=== PATIENT | female | born 1945 | race Caucasian/White ===

== ENCOUNTER → 2020-01-26 09:52 | Outpatient (BNVA) | payer MEDICARE, OTHER, SELFPAY | PROVIDERS: Family Provider Nurse Practitioner; PCP Nurse Practitioner; Visit Provider Nurse Practitioner | DX: M25.562 Pain in left knee (principal) | CPT/HCPCS: 73562 ==

== ENCOUNTER 2020-04-21 13:33 | Outpatient (CLI) | payer MEDICARE, OTHER, SELFPAY ==
--- NOTE | 2020-04-21 14:12 | PFTS_ITS ---
Date of Study:04/21/20 Date of Dictation: MECHANICS: Forced vital capacity (FVC) is normal. Forced expiratory volume in one second (FEV1) is normal. FEV1/FVC is normal. FLOW VOLUME LOOP: Normal. LUNG VOLUMES: Not performed DIFFUSING CAPACITY FOR CARBON MONOXIDE: Not performed. INTERPRETATION: The spirometry is normal. MTDD
== END 2020-04-21 13:34 | disposition home or self-care (01) ==
LOC: RT 13:39
PROVIDERS: PCP Nurse Practitioner; Visit Provider Internal Medicine Cardiovascular Disease
DX: R06.02 Shortness of breath (principal)
CPT/HCPCS: 94010; 94729

== ENCOUNTER → 2020-06-15 10:55 | Outpatient (BNVA) | payer MEDICARE, OTHER, SELFPAY | PROVIDERS: PCP Nurse Practitioner; Visit Provider Nurse Practitioner | DX: M54.2 Cervicalgia (principal); M54.9 Dorsalgia, unspecified; K92.1 Melena | CPT/HCPCS: 72040; 72072; 72100; 74018 ==

== ENCOUNTER → 2020-07-01 09:43 | Outpatient (BNVA) | payer MEDICARE, OTHER, SELFPAY | PROVIDERS: PCP Nurse Practitioner; Visit Provider Nurse Practitioner | DX: E78.5 Hyperlipidemia, unspecified (principal); I10 Essential (primary) hypertension; R39.9 Unspecified symptoms and signs involving the genitourinary system; E03.8 Other specified hypothyroidism; M50.30 Other cervical disc degeneration, unspecified cervical region; M51.36 Other intervertebral disc degeneration, lumbar region | CPT/HCPCS: 80053; 80061; 81000; 84443; 85025 ==

== ENCOUNTER → 2020-12-08 15:06 | Outpatient (BNVA) | payer MEDICARE, OTHER, SELFPAY | PROVIDERS: PCP Nurse Practitioner; Visit Provider Nurse Practitioner | DX: E78.5 Hyperlipidemia, unspecified (principal); M54.6 Pain in thoracic spine; J44.9 Chronic obstructive pulmonary disease, unspecified; E03.8 Other specified hypothyroidism; M54.9 Dorsalgia, unspecified; I10 Essential (primary) hypertension | CPT/HCPCS: 80053; 80061; 84443 ==

== ENCOUNTER → 2021-02-10 10:07 | Outpatient (BNVA) | payer MEDICARE, OTHER, SELFPAY | PROVIDERS: PCP Nurse Practitioner; Visit Provider Nurse Practitioner Family | DX: R07.89 Other chest pain (principal); H61.23 Impacted cerumen, bilateral; J44.9 Chronic obstructive pulmonary disease, unspecified | CPT/HCPCS: 71046; 80053; 84484; 85025 ==

== ENCOUNTER 2021-02-27 09:06 | Outpatient (CLI) | payer MEDICARE, OTHER, SELFPAY ==
--- NOTE | 2021-02-27 09:30 | CT_ITS ---
WS: [id number] CTA THORACIC TECHNIQUE: Contrast enhanced CTA of the thoracic aorta with coronal and sagittal reformatted images a nd maximum intensity projection (MIP) images. CLINICAL INFORMATION: M54.6 - Pain in thoracic spine COMPARISON: CT April 2018 DLP: 1468.[address] scans at [facility] use at least one of these dose optimization techniques: automat ed exposure control; mA and/or kV adjustment per patient size (includes targeted exams where dose is matched to clinical indication); or iterative reconstruction. FINDINGS: Normal caliber thoracic aorta. Mild aortic calcification. No evidence of thoracic aortic aneurysm or dissection. No evidence of intramural hematoma.Mild chronic emphysematous changes. No acute pulmonary infiltrates. No focal consolidation or pleural fluid. Subsegmental atelectasis in the lingula. No ax illary lymphadenopathy. Proximal main pulmonary arteries are normal. No mediastinal or hilar lymphadenopathy. Right thyroid n odule measuring 2 mm unchanged since 2019. Mild thoracic kyphosis. Endplate Schmorl's nodes and degenerative changes in the mid thoracic spine. Adrenal glands are normal. CT/CT angio chest [id number] IMPRESSION: 1. Normal caliber thoracic aorta. No evidence of dissection or aneurysm. 2. Mild chronic emphysematous changes. No acute pulmonary infiltrates. 3. No mediastinal or hilar lymphadenopathy. 4. Mild thoracic kyphosis with mild chronic anterior wedging in the mid thorac ic 5. Endplate degenerative changes with endplate Schmorl's nodes in the mid and lower thoracic spine. This is similar in appearance to 2018.
[2021-02-27] MEDS: iohexol 350 mg/mL 100 mL Btl IV (09:44)
== END 2021-02-27 09:07 | disposition home or self-care (01) ==
LOC: RADWPI 09:10
PROVIDERS: PCP Nurse Practitioner; Visit Provider Internal Medicine Cardiovascular Disease
DX: M51.44 Schmorl's nodes, thoracic region (principal); M40.294 Other kyphosis, thoracic region; M48.54XS Collapsed vertebra, not elsewhere classified, thoracic region, sequela of fracture
CPT/HCPCS: 71275; Q9967

== ENCOUNTER → 2021-04-26 10:33 | Outpatient (BNVA) | payer MEDICARE, OTHER, SELFPAY | PROVIDERS: PCP Nurse Practitioner; Visit Provider Nurse Practitioner | DX: I10 Essential (primary) hypertension (principal); E03.8 Other specified hypothyroidism; E78.5 Hyperlipidemia, unspecified; F41.9 Anxiety disorder, unspecified | CPT/HCPCS: 80053; 80061; 84443 ==

== ENCOUNTER → 2021-08-16 15:21 | Outpatient (BNVA) | payer MEDICARE, OTHER, SELFPAY | PROVIDERS: PCP Nurse Practitioner; Visit Provider Nurse Practitioner | DX: M51.36 Other intervertebral disc degeneration, lumbar region (principal); E55.9 Vitamin D deficiency, unspecified; M25.551 Pain in right hip; M25.552 Pain in left hip; M79.671 Pain in right foot; M79.672 Pain in left foot | CPT/HCPCS: 82306 ==

== ENCOUNTER → 2021-08-23 09:12 | Outpatient (BNVA) | payer MEDICARE, OTHER, SELFPAY | PROVIDERS: PCP Nurse Practitioner; Visit Provider Nurse Practitioner | DX: M25.551 Pain in right hip (principal); M25.552 Pain in left hip; M79.671 Pain in right foot; M79.672 Pain in left foot; M47.897 Other spondylosis, lumbosacral region | CPT/HCPCS: 72100; 73502; 73522; 73630 ==

== ENCOUNTER → 2022-02-08 10:03 | Outpatient (BNVA) | payer MEDICARE, OTHER, SELFPAY | PROVIDERS: PCP Nurse Practitioner; Visit Provider Internal Medicine Cardiovascular Disease | DX: I65.23 Occlusion and stenosis of bilateral carotid arteries (principal); I35.1 Nonrheumatic aortic (valve) insufficiency; I49.3 Ventricular premature depolarization; I10 Essential (primary) hypertension; E78.5 Hyperlipidemia, unspecified; E03.8 Other specified hypothyroidism; Z87.891 Personal history of nicotine dependence | CPT/HCPCS: 99214 ==

== ENCOUNTER → 2022-02-22 09:11 | Outpatient (BNVA) | payer MEDICARE, OTHER, SELFPAY | PROVIDERS: PCP Nurse Practitioner; Visit Provider Nurse Practitioner Family | DX: I35.1 Nonrheumatic aortic (valve) insufficiency (principal); R07.89 Other chest pain; I10 Essential (primary) hypertension; Z87.891 Personal history of nicotine dependence | CPT/HCPCS: 99214 ==

== ENCOUNTER 2022-03-07 08:17 | Outpatient (CLI) | payer MEDICARE, OTHER, SELFPAY ==
[2022-03-07 08:51] VITALS: BMI 22.0
--- NOTE | 2022-03-07 08:52 | NMCV_ITS ---
NM james perf SPECT r/s* [id number] Ansley Nickerson Age: 76 Gender: F : 1945 Exam Date: 03/07/2022 08:52 Ordering Phys: Chanel Leahy Technologist: ALVARO Wilson Exam Location: [facility] Indications: CHEST PAIN STRESS TEST Please see separate stress test report in [facility] for full findings IMAGE PROTOCOL Rest/Stress 1 Exercise Day Radiopharmaceutical Dose (mCi) Administration Site Administered by Rest: Tc-99m 10.5 IV ALVARO Mora Sestamibi Stress:Tc-99m 32.4 IV ALVARO Mora Sestamimayco Rest: 07-Mar-2022 60 Discovery 630 Stress: 07-Mar-2022 15 Discovery 630 Radiopharmaceutical was injected at 100% maximum heart rate. Images obtained in supine and prone position. SPECT RESULTS Technical Quality: Excellent Raw Data Analysis: Normal Image Corrections: No attenuation or motion correction applied Summed Stress Score: 0 Summed Rest Score: 1 Summed Difference Score: 0 PERFUSION FINDINGS Small size perfusion normality of mild severity of apical septal wall on rest images with improved tracer uptake on stress images. FUNCTIONAL RESULTS (calculated via Gated SPECT) Stress Image LV EF (%): 86 Stress EDV (mL):59 TID: 0.74 Stress ESV (mL):8 FUNCTIONAL FINDINGS: The left ventricle is normal in size. Transient Ischemia Dilatation of 0.74. There is normal left ventricular systolic function. The left ventricular ejection fraction is normal with a value of 86%. There is hyperdynamic left ventricular wall thickening. IMPRESSIONS 1. Myocardial perfusion imaging is normal. 2. Overall left ventricular systolic function is normal without regional wall motion abnormalities. 3. The left ventricular ejection fraction is normal with a value of 86%. 4. Uninterpretable EKG due to baseline left bundle branch block. 5. Scan indicates low risk for cardiac events. Verna Kimble MD (Electronically Signed) Final Date: 09 March 2022 14:46 S
--- NOTE | 2022-03-07 08:52 | ECG_ITS ---
[facility] Test Date: 2022-03-07 Pat Name: Ansley Nickerson Department: Room: Gender: Female Director Of Employee Development: : 1945 Requested By: Chanel Leahy Order Number: [id number] Espinoza MD: Verna Kimble M.D. Interpretive Statements NAME OF STUDY: EXERCISE SESTAMIBI STRESS TEST INDICATION: Chest Pain Baseline blood pressure of 146/85 mm Hg, heart rate of 82 beats per minute and oxygen saturation of 96%. EKG showed normal sinus rhythm, left axis deviation. Left bundle branch block. The patient exercised for 5 minutes 32 seconds on a standard Maximino protocol. Patient attained a maximum heart rate of 155 beats per minute(108% of the maximum predicted heart rate) with a blood pressure at the peak exercise of 159/71 mm Hg and oxygen saturation 96%. The EKG at the peak exercise revealed sinus tachycardia with left bundle branch block. Patient did not have any chest pain or any significant arrhythmis with the exercise During the recovery phase, there were no new changes. Blood pressure at the end of the recovery phase was 139/72 mm Hg with a heart rate of 84 beats per minute and oxygen saturation 96%. CONCLUSION: 1. Uninterpretable EKG response to treadmill exercise due to baseline left bundle branch block. 2. No exercise-induced chest pain or cardiac arrhythmia 3. Exercise tolerance, attained a maximum of 7 METs. Maximum VO2 of 24.5 mL/kg/min. 4. Baseline hypertension/normal blood pressure with hypertensive/normal response to exercise. 5. Perfusion scan will be documented separately. Electronically Signed On 03-09-2022 14:45:18 CDT by Verna Kimble M.D. [id number]
[2022-03-07 11:23] VITALS: BP 117/73; PULSE 73
== END 2022-03-07 08:18 | disposition home or self-care (01) ==
LOC: CDL 08:18
PROVIDERS: PCP Nurse Practitioner; Visit Provider Nurse Practitioner Family
DX: R07.9 Chest pain, unspecified (principal); I10 Essential (primary) hypertension
CPT/HCPCS: 78452; 93017; A9500

== ENCOUNTER 2022-03-28 12:59 | Outpatient (CLI) | payer MEDICARE, OTHER, SELFPAY ==
--- NOTE | 2022-03-28 13:30 | USCV_ITS ---
Ansley Nickerson Age: 76 Gender: F : 1945 Exam Date: 03/28/2022 13:10 Ordering Phys: Ellie Davis MD ([email or web address]) Technologist: [place] [facility] [place]: cca disease Risk Factors: None Previous Vascular Surgery: Right Brachial BP: / Left Brachial BP: / Right Left Velocity (cm/s) Spectral Plaque Velocity (cm/s) Spectral Plaque Syst/Diast Broadening Syst/Diast Broadening 63.40/ 12.65 Prox CCA 52.80 / 10.10 61.75/ 12.65 Mid CCA 51.30 / 14.00 55.35/ 13.30 Hetro Distal CCA 43.50 / 7.80 Hetro 75.55/ 14.85 Hetro Prox ICA 57.50 / 7.80 Hetro 90.95/ 20.95 Hetro Mid ICA 61.40 / 12.40 89.60/ 19.95 Distal ICA 88.60 / 28.00 107.05 ECA 60.60 1.55 ICA/CCA 1.68 Antegrade Vertebral Antegrade 54.55/ 11.65 cm/s 54.00/ 12.00 cm/s Bi Subclavian Tri 88.20 93.20 FINDINGS Mild to moderate heterogeneous plaques at the right bifurcation and proximal internal carotid artery Moderate heterogeneous plaques at the left bifurcation and proximal internal carotid artery Antegrade flow in the vertebral arteries bilaterally. Normal Doppler flow velocities in the external carotid, vertebral and subclavian arteries bilaterally CONCLUSIONS Mild to moderate heterogeneous plaques at the right bifurcation and proximal internal carotid artery suggesting less than 50% stenosis Moderate heterogeneous plaques at the left bifurcation and proximal internal carotid artery suggesting less than 50% stenosis. No significant stenosis in the external carotid, vertebral and subclavian arteries bilaterally. Compared to the study from 08/14/2019, there may not be a significant change Dr Ellie Davis MD [facility] (Electronically Signed) Final Date: 02 Apr 2022 12:54 S
== END 2022-03-28 13:00 | disposition home or self-care (01) ==
LOC: RAD 13:00
PROVIDERS: PCP Nurse Practitioner; Visit Provider Internal Medicine Cardiovascular Disease
DX: I77.9 Disorder of arteries and arterioles, unspecified (principal); I65.23 Occlusion and stenosis of bilateral carotid arteries
CPT/HCPCS: 93880

== ENCOUNTER 2022-05-02 06:13 | Outpatient (CLI) | payer MEDICARE, OTHER, SELFPAY ==
--- NOTE | 2022-05-02 | USCV_ITS ---
LiyaAnsley Age: 76 Gender: F : 1945 Exam Date: 05/02/2022 06:31 Ordering Phys: Chanel Leahy Technologist: NORMA [place] [facility] [place]ication: SYSTOLIC MURMUR BP: 0 / 90 HR: 74 Rhythm: Sinus Technical Quality: Adequate MEASUREMENTS (Male / Female) Normal Values 2D ECHO LV Diastolic Diameter PLAX 4.3 cm 4.2 - 5.9 / 3.9 - 5.3 cm LV Systolic Diameter PLAX 2.5 cm IVS Diastolic Thickness 1.2 cm 0.6 - 1.0 / 0.6 - 0.9 cm IVS Systolic Thickness 1.7 cm LVPW Diastolic Thickness 1.1 cm 0.6 - 1.0 / 0.6 - 0.9 cm LVPW Systolic Thickness 1.6 cm LVOT Diameter 2.0 cm LV Ejection Fraction 2D Teich 72.1 % LV Ejection Fraction MOD 2C 67.9 % LV Ejection Fraction 2C AL 67.5 % LA Diameter 3.2 cm LA Width 4.2 cm LA Height 4.5 cm RA Width 2.6 cm RA Height 4.6 cm Aorta at Sinotubular Diameter 1.8 cm IVC Diameter 1.4 cm M-MODE Aortic Annulus Diameter 2.2 cm LA Ao Ratio MM 1.3 MV E Point Septal Separation 0.2 cm DOPPLER AV Peak Velocity 189.0 cm/s LVOT Peak Velocity 140.3 cm/s AV Area Cont Eq vti 2.5 cm squared AV Area Cont Eq pk 2.3 cm squared MV Peak Velocity 196.0 cm/s MV Area PHT 2.1 cm squared Mitral E to A Ratio 0.7 MV E' Velocity 55.5 cm/s Mitral E to MV E' Ratio 22.8 Mitral E to LV E' Lateral Ratio 27.5 Mitral E to LV E' Septal Ratio 19.8 TR Peak Velocity 241.6 cm/s TR Peak Gradient 23.3 mmHg TR Mean Velocity 204.7 cm/s TR Mean Gradient 17.1 mmHg TR Velocity Time Integral 77.6 cm TV Peak E Velocity 38.0 cm/s Right Atrial Pressure 3.0 mmHg Pulmonary Artery Systolic Pressu 26.3 mmHg PV Peak Velocity 115.0 cm/s RV Acceleration Time 0.1 s RV Ejection Time 0.4 s RV AcT/ET 0.3 FINDINGS Left Ventricle Normal left ventricular size and systolic function, EF 73 %. Moderate left ventricular hypertrophy. No regional wall motion abnormalities. Grade I/IV diastolic dysfunction (abnormal relaxation filling pattern), normal to mildly elevated filling pressures. Right Ventricle The right ventricle is normal in size and function. Right Atrium The right atrium is normal in size. Left Atrium Mildly increased left atrial size. Mitral Valve Trace mitral valve regurgitation. Aortic Valve Thickened aortic valve. Mild to moderate aortic valve regurgitation. Tricuspid Valve Mild tricuspid valve regurgitation. Estimated pulmonary artery peak systolic pressure of 26 mmHg Pulmonic Valve Pulmonic valve not well visualized. Pericardium Normal pericardium without effusion. Aorta Normal ascending aorta dimension. IVC IVC is of normal dimension CONCLUSIONS Normal left ventricular size and systolic function, EF 73 %. Moderate left ventricular hypertrophy. No regional wall motion abnormalities. Grade I/IV diastolic dysfunction (abnormal relaxation filling pattern), normal to mildly elevated filling pressures. Mildly increased left atrial size. Thickened aortic valve, with the features of aortic valve sclerosis Mild to moderate aortic valve regurgitation. Mild tricuspid valve regurgitation. Estimated pulmonary artery peak systolic pressure of 26 mmHg. There is no pericardial effusion. Dr Ellie Davis MD [facility] (Electronically Signed) Final Date: 02 May 2022 08:24 S
== END 2022-05-02 06:14 | disposition home or self-care (01) ==
LOC: RAD 06:13
PROVIDERS: PCP Nurse Practitioner; Visit Provider Nurse Practitioner Family
DX: I35.1 Nonrheumatic aortic (valve) insufficiency (principal); R01.1 Cardiac murmur, unspecified
CPT/HCPCS: 93306

== ENCOUNTER → 2022-07-11 14:28 | Outpatient (BNVA) | payer MEDICARE, OTHER, SELFPAY | PROVIDERS: PCP Nurse Practitioner; Visit Provider Nurse Practitioner Family | DX: R07.89 Other chest pain (principal) | CPT/HCPCS: 36415; 80048; 83880; 85025; 85610; 99214 ==

== ENCOUNTER → 2022-07-12 14:00 | Outpatient (BNVA) | payer MEDICARE, OTHER, SELFPAY | PROVIDERS: PCP Nurse Practitioner; Visit Provider Internal Medicine Cardiovascular Disease | DX: R06.02 Shortness of breath (principal); R07.89 Other chest pain; I49.3 Ventricular premature depolarization | CPT/HCPCS: 93225 ==

== ENCOUNTER → 2022-07-18 09:42 | Outpatient (BNVA) | payer MEDICARE, OTHER, SELFPAY | PROVIDERS: PCP Nurse Practitioner; Visit Provider Nurse Practitioner | DX: E03.8 Other specified hypothyroidism (principal) | CPT/HCPCS: 84439; 84443; 84481 ==

== ENCOUNTER → 2022-07-25 09:58 | Outpatient (BNVA) | payer MEDICARE, OTHER, SELFPAY | PROVIDERS: PCP Nurse Practitioner; Visit Provider Internal Medicine Cardiovascular Disease | DX: R06.02 Shortness of breath (principal); E78.5 Hyperlipidemia, unspecified; R53.83 Other fatigue; M25.50 Pain in unspecified joint; R07.89 Other chest pain; Z79.01 Long term (current) use of anticoagulants; I12.9 Hypertensive chronic kidney disease with stage 1 through stage 4 chronic kidney disease, or unspecified chronic kidney disease; N18.9 Chronic kidney disease, unspecified | CPT/HCPCS: 80048; 82550; 83880; 84443; 85025; 86141; 93005; 99214 ==

== ENCOUNTER → 2023-01-25 10:52 | Outpatient (BNVA) | payer MEDICARE, OTHER, SELFPAY | PROVIDERS: PCP Nurse Practitioner; Visit Provider Nurse Practitioner | DX: E55.9 Vitamin D deficiency, unspecified (principal); I10 Essential (primary) hypertension; M79.2 Neuralgia and neuritis, unspecified; J44.9 Chronic obstructive pulmonary disease, unspecified; Z23 Encounter for immunization | CPT/HCPCS: 80053; 80061; 82306; 82607; 84439; 84443; 84481; 85025 ==

== ENCOUNTER → 2023-04-09 15:08 | Outpatient (BNVA) | payer MEDICARE, OTHER, SELFPAY | PROVIDERS: PCP Nurse Practitioner; Visit Provider Nurse Practitioner | DX: M25.50 Pain in unspecified joint (principal) | CPT/HCPCS: 73562 ==

== ENCOUNTER → 2023-04-22 08:42 | Outpatient (BNVA) | payer MEDICARE, OTHER, SELFPAY | PROVIDERS: PCP Nurse Practitioner; Visit Provider Nurse Practitioner Family | DX: I20.9 Angina pectoris, unspecified (principal); R06.02 Shortness of breath; I10 Essential (primary) hypertension; I35.1 Nonrheumatic aortic (valve) insufficiency; I49.3 Ventricular premature depolarization | CPT/HCPCS: 36415; 80048; 83880 ==

== ENCOUNTER → 2023-04-22 08:42 | Outpatient (BNVA) | payer MEDICARE, OTHER, SELFPAY | PROVIDERS: PCP Nurse Practitioner; Visit Provider Nurse Practitioner Family | DX: I10 Essential (primary) hypertension (principal); I49.3 Ventricular premature depolarization; R07.89 Other chest pain; Z87.891 Personal history of nicotine dependence | CPT/HCPCS: 36415; 80048; 83880; 99214 ==

== ENCOUNTER 2023-05-10 13:10 | Outpatient (CLI) | payer MEDICARE, OTHER, SELFPAY ==
--- NOTE | 2023-05-10 14:00 | USCV_ITS ---
Ansley Nickerson Age: 77 Gender: F : 1945 Exam Date: 05/10/2023 14:29 Ordering Phys: Chanel Leahy Technologist: CT Exam Location: [facility] [place] Indication: dyspenea BP: 145 / 70 HR: 57 Rhythm: Sinus Technical Quality: Adequate MEASUREMENTS (Male / Female) Normal Values 2D ECHO LV Diastolic Diameter PLAX 3.7 cm 4.2 - 5.9 / 3.9 - 5.3 cm LV Systolic Diameter PLAX 2.1 cm IVS Diastolic Thickness 0.7 cm 0.6 - 1.0 / 0.6 - 0.9 cm IVS Systolic Thickness 1.3 cm LVPW Diastolic Thickness 1.1 cm 0.6 - 1.0 / 0.6 - 0.9 cm LVPW Systolic Thickness 2.0 cm LVOT Diameter 2.0 cm LV Ejection Fraction 2D Teich 74.7 % LV Ejection Fraction MOD 2C 60.3 % LV Ejection Fraction 2C AL 59.6 % LA Diameter 4.3 cm Aorta at Sinotubular Diameter 2.6 cm IVC Diameter 1.6 cm M-MODE Aortic Annulus Diameter 3.0 cm LA Ao Ratio MM 1.5 MV E Point Septal Separation 0.4 cm DOPPLER AV Peak Velocity 166.0 cm/s LVOT Peak Velocity 126.0 cm/s AV Area Cont Eq vti 3.5 cm squared AV Area Cont Eq pk 2.5 cm squared MV Area PHT 2.5 cm squared Mitral E to A Ratio 0.8 MV E' Velocity 66.0 cm/s Mitral E to MV E' Ratio 19.8 Mitral E to LV E' Lateral Ratio 18.1 Mitral E to LV E' Septal Ratio 22.3 TR Peak Velocity 275.6 cm/s TR Peak Gradient 30.4 mmHg TR Mean Velocity 201.9 cm/s TR Mean Gradient 17.1 mmHg TR Velocity Time Integral 84.1 cm TV Peak E Velocity 117.0 cm/s Right Atrial Pressure 3.0 mmHg Pulmonary Artery Systolic Pressu 33.4 mmHg PV Peak Velocity 110.0 cm/s FINDINGS Left Ventricle Normal left ventricular size, systolic function and moderately increased wall thickness, with no regional wall motion abnormalities. Left ventricular ejection fraction is estimated at 60-65 %. Grade II diastolic dysfunction, moderately elevated filling pressures. Right Ventricle Normal right ventricular size and systolic function. Mild pulmonary hypertension, RVSP 39 mmHg. Right Atrium Normal right atrial size. Left Atrium Mildly increased left atrial size. Mitral Valve Structurally normal mitral valve. No mitral valve stenosis. Mild mitral valve regurgitation. Aortic Valve Structurally normal trileaflet aortic valve. No aortic valve stenosis. Mild aortic valve regurgitation. Tricuspid Valve Structurally normal tricuspid valve. No tricuspid valve stenosis. Mild tricuspid valve regurgitation. Pulmonic Valve Structurally normal pulmonic valve. No pulmonary valve stenosis. Trace pulmonary valve regurgitation. Pericardium No pericardial effusion. Aorta Normal size aortic root and proximal ascending aorta. IVC Normal IVC dimension with >50% respiratory change of the inferior vena cava. CONCLUSIONS 1. Normal left ventricular size, systolic function and moderately increased wall thickness, with no regional wall motion abnormalities. Left ventricular ejection fraction is estimated at 60-65 %. Grade II diastolic dysfunction, moderately elevated filling pressures. 2. Mild mitral and tricuspid valve regurgitation. 3. Mild to moderate aortic valve regurgitation. 4. When compared to study dated 05/02/2022, there has been no significant change. Verna Kimble MD (Electronically Signed) Final Date: 11 May 2023 10:29 S
== END 2023-05-10 13:11 | disposition home or self-care (01) ==
PROVIDERS: PCP Nurse Practitioner; Visit Provider Nurse Practitioner Family
DX: I35.1 Nonrheumatic aortic (valve) insufficiency (principal); I49.3 Ventricular premature depolarization; I10 Essential (primary) hypertension; R06.02 Shortness of breath; I20.9 Angina pectoris, unspecified
CPT/HCPCS: 36415; 80048; 83880; 93306

== ENCOUNTER 2023-05-27 07:08 | Outpatient (CLI) | payer MEDICARE, OTHER, SELFPAY ==
[2023-05-27 07:47] VITALS: BMI 21.6
--- NOTE | 2023-05-27 07:47 | ECG_ITS ---
[facility] Test Date: 2023-05-27 Pat Name: Ansley Nickerson Department: Room: Gender: Female Health Safety Specialist: Amy Barber : 1945 Requested By: Chanel Leahy Order Number: [id number] Alexis MD: Chi Brennan M.D. Interpretive Statements NAME OF STUDY: LEXISCAN SESTAMIBI STRESS TEST INDICATION: [Chest Pain, ] Procedure: At the baseline, the blood pressure was 139/62 mmHg with a heart rate of 73 bpm. The electrocardiogram showed normal sinus rhythm, left bundle branch block. The Lexiscan was infused over a period of 20 seconds. A total of 0.4 mg of Lexiscan was infused. The stress phase was continued for a total of 5 minutes. Heart rate was at the end of stress phase was 87 bpm and a blood pressure of 150/70 mmHg. The EKG at the peak infusion revealed normal sinus rhythm with no significant ST-T wave changes. Sestamibi was injected 20 seconds after the Lexiscan infusion. Blood pressure at the end of recovery phase was 165/68 mmHg with a heart rate of 82 bpm. Conclusion: 1. Normal EKG response to Lexiscan infusion 2. No Lexiscan induced chest pain or cardiac arrhythmia. 3. Normal blood pressure and heart rate response. 4. Sestamibi/sestamibi perfusion scan pending; see separate report. Electronically Signed On 06-01-2023 14:43:23 CDT by Chi Brennan M.D. [id number]
--- NOTE | 2023-05-27 07:48 | NMCV_ITS ---
NM james perf SPECT r/s* [id number] Ansley Nickerson Age: 77 Gender: F : 1945 Exam Date: 05/27/2023 07:48 Ordering Phys: Chanel Leahy Technologist: ALVARO Wilson Exam Location: [facility] Indications: ANGINA PECTORIS, SHORTNESS OF BREATH, HYPERTENSION STRESS TEST Please see separate stress test report in [facility] for full findings IMAGE PROTOCOL Rest/Stress 1 Lexiscan Day Radiopharmaceutical Dose (mCi) Administration Site Administered by Rest: Tc-99m 10.6 IV ALVARO Mora Sestamibi Stress:Tc-99m 32.4 IV ALVARO Mora Sestamibi Rest: 27-May-2023 60 Discovery 630 Stress: 27-May-2023 30 Discovery 630 0.4mg Lexiscan. Images obtained in supine and prone position. SPECT RESULTS Technical Quality: Excellent Raw Data Analysis: Normal Image Corrections: No attenuation or motion correction applied Summed Stress Score: 0 Summed Rest Score: 5 Summed Difference Score: 0 PERFUSION FINDINGS There is homogenous radiotracer uptake throughout the myocardium. No evidence of ischemia. FUNCTIONAL RESULTS (calculated via Gated SPECT) Stress Image LV EF (%): 83 Stress EDV (mL):66 TID: 0.89 Stress ESV (mL):11 FUNCTIONAL FINDINGS: There is normal left ventricular systolic function. IMPRESSIONS 1. Normal myocardial perfusion imaging with no evidence of ischemia 2. LV systolic function is normal Chi Brennan MD (Electronically Signed) Final Date: 27 May 2023 10:42 S
--- NOTE | 2023-05-27 08:50 | PC.NURSE ---
Around 0850: Patient stated that she injured her knee and is unable to perform exercise mibi stress test on treadmill. Notified Dr. Davis, patients casework specialist. Orders received to change test to lexiscan mibi stress test. See orders.
[2023-05-27] MEDS: aminophylline 25 mg/mL SDV 10 mL IVP (09:00)
[2023-05-27 09:15] VITALS: BP 165/68; PULSE 83
== END 2023-05-27 07:09 | disposition home or self-care (01) ==
LOC: CDL 07:09
PROVIDERS: PCP Nurse Practitioner; Visit Provider Nurse Practitioner Family
DX: R07.9 Chest pain, unspecified (principal); R06.02 Shortness of breath; I10 Essential (primary) hypertension; I20.9 Angina pectoris, unspecified
CPT/HCPCS: 36415; 78452; 93017; 96374; A9500; J0280

== ENCOUNTER → 2023-06-03 12:52 | Outpatient (BNVA) | payer MEDICARE, OTHER, SELFPAY | PROVIDERS: PCP Nurse Practitioner; Visit Provider Thoracic Surgery (Cardiothoracic Vascular Surgery) | DX: I96 Gangrene, not elsewhere classified (principal); L97.812 Non-pressure chronic ulcer of other part of right lower leg with fat layer exposed | CPT/HCPCS: 11042; 99213; A6021 ==

== ENCOUNTER → 2023-06-07 08:57 | Outpatient (BNVA) | payer MEDICARE, OTHER, SELFPAY | PROVIDERS: PCP Nurse Practitioner; Visit Provider Nurse Practitioner Family | DX: R06.02 Shortness of breath (principal) | CPT/HCPCS: 99213 ==

== ENCOUNTER → 2023-06-11 11:31 | Outpatient (BNVA) | payer MEDICARE, OTHER, SELFPAY | PROVIDERS: PCP Nurse Practitioner; Visit Provider Nurse Practitioner | DX: I10 Essential (primary) hypertension (principal); E03.8 Other specified hypothyroidism; E55.9 Vitamin D deficiency, unspecified | CPT/HCPCS: 80053; 80061; 82306; 82607; 84443 ==

== ENCOUNTER → 2023-06-12 14:45 | Outpatient (BNVA) | payer MEDICARE, OTHER, SELFPAY | PROVIDERS: PCP Nurse Practitioner; Visit Provider Thoracic Surgery (Cardiothoracic Vascular Surgery) | DX: I96 Gangrene, not elsewhere classified (principal); L97.812 Non-pressure chronic ulcer of other part of right lower leg with fat layer exposed | CPT/HCPCS: 11042; A6021; A6212 ==

== ENCOUNTER → 2023-06-19 14:11 | Outpatient (BNVA) | payer MEDICARE, OTHER, SELFPAY | PROVIDERS: PCP Nurse Practitioner; Visit Provider Thoracic Surgery (Cardiothoracic Vascular Surgery) | DX: I96 Gangrene, not elsewhere classified (principal); L97.812 Non-pressure chronic ulcer of other part of right lower leg with fat layer exposed | CPT/HCPCS: 97597; A6210; A6212 ==

== ENCOUNTER → 2023-06-26 14:56 | Outpatient (BNVA) | payer MEDICARE, OTHER, SELFPAY | PROVIDERS: PCP Nurse Practitioner; Visit Provider Thoracic Surgery (Cardiothoracic Vascular Surgery) | DX: I96 Gangrene, not elsewhere classified (principal); L97.812 Non-pressure chronic ulcer of other part of right lower leg with fat layer exposed | CPT/HCPCS: 11042; A6212 ==

== ENCOUNTER → 2023-07-03 14:21 | Outpatient (BNVA) | payer MEDICARE, OTHER, SELFPAY | PROVIDERS: PCP Nurse Practitioner; Visit Provider Thoracic Surgery (Cardiothoracic Vascular Surgery) | DX: I96 Gangrene, not elsewhere classified (principal); L97.812 Non-pressure chronic ulcer of other part of right lower leg with fat layer exposed | CPT/HCPCS: 97597; A6210; A6212 ==

== ENCOUNTER 2024-01-13 10:19 | Outpatient (CLI) | payer MEDICARE, OTHER, SELFPAY ==
--- NOTE | 2024-01-13 11:00 | CT_ITS ---
WS: [id number] CT HEAD NONCONTRAST HISTORY: R26.81 - Unsteadiness on feet TECHNIQUE: Contiguous axial imaging performed through the brain in 2.5 mm imaging. Bone and soft tiss ue windows. Sagittal and coronal reformats reviewed. All CT scans at [facility] use at least one of these dose optimization techniques: automated exposure control; mA and/or kV adjustment per pa tient size (includes targeted exams where dose is matched to clinical indication); or iterative recon struction. DLP: 1051.39 mGy.cm COMPARISON: 09/13/2016 No acute intracranial hemorrhage, midline shift or mass effect. Mild to moderate bilateral cerebral and cerebellar atrophy is symmetric. Very mild progression of vol ume loss since 2016. Mild small vessel ischemic changes. No prior infarct. Ventricles: Normal size with no hydrocephalus. Moderate calcification in the distal intracranial carotid arteries. Paranasal sinuses: As visualized are clear. Mastoid air cells: Normal mastoid air cells. Cerumen in the external auditory canals. Calvarium and scalp: Skull is intact with no soft tissue edema or swelling. IMPRESSION: 1. No acute intracranial hemorrhage or edema. 2. Mild to moderate bilateral cerebellar and cerebral atrophy is symmetric. Mild progression of atro phy and small vessel ischemic disease since 2016.
--- NOTE | 2024-01-13 12:30 | USCV_ITS ---
Ansley Nickerson Age: 78 Gender: F : 1945 Exam Date: 01/13/2024 11:16 Ordering Phys: Taran Clark Technologist: CT Exam Location: [facility] [place] Indication: syncope Risk Factors: Previous Vascular Surgery: Right Brachial BP: / Left Brachial BP: / Right Left Velocity (cm/s) Spectral Plaque Velocity (cm/s) Spectral Plaque Syst/Diast Broadening Syst/Diast Broadening 60.80/ 15.40 Prox CCA 66.50 / 12.00 68.40/ 15.40 Mid CCA 63.00 / 11.80 51.60/ 15.40 Distal CCA 72.60 / 13.00 86.70/ 19.30 Prox ICA 74.00 / 8.90 82.30/ 25.90 Mid ICA 63.20 / 14.30 86.40/ 23.60 Distal ICA 83.10 / 19.70 62.20 ECA 88.90 1.70 ICA/CCA 1.10 Antegrade Vertebral Antegrade 39.10/ 8.50 cm/s 46.70/ 10.60 cm/s Bi Subclavian Bi FINDINGS Comparison:. 03/28/22. No significant elevation of systolic or diastolic velocities. Moderate plaque at the bifurcations. Antegrade vertebral arteries. CONCLUSIONS Bilateral ICA stenosis less than 50%. Moderate plaque at the bifurcations. Dr. Shivani Guerrier DO (Electronically Signed) Final Date: 13 January 2024 13:06 S
== END 2024-01-13 10:20 | disposition home or self-care (01) ==
LOC: RAD 10:20
PROVIDERS: PCP Nurse Practitioner; Visit Provider Nurse Practitioner
DX: R26.81 Unsteadiness on feet (principal); I65.23 Occlusion and stenosis of bilateral carotid arteries; E78.5 Hyperlipidemia, unspecified
CPT/HCPCS: 70450; 93880

== ENCOUNTER → 2024-01-27 16:07 | Outpatient (BNVA) | payer MEDICARE, OTHER, SELFPAY | PROVIDERS: PCP Nurse Practitioner; Visit Provider Nurse Practitioner | DX: I10 Essential (primary) hypertension (principal); E03.8 Other specified hypothyroidism | CPT/HCPCS: 80053; 80061; 84443; 85025 ==

== ENCOUNTER → 2024-03-02 10:00 | Outpatient (BNVA) | payer MEDICARE, OTHER, SELFPAY | PROVIDERS: PCP Nurse Practitioner; Visit Provider Internal Medicine Cardiovascular Disease | DX: I49.3 Ventricular premature depolarization (principal); I35.1 Nonrheumatic aortic (valve) insufficiency; I10 Essential (primary) hypertension; E78.5 Hyperlipidemia, unspecified; I65.23 Occlusion and stenosis of bilateral carotid arteries; Z87.891 Personal history of nicotine dependence | CPT/HCPCS: 99214 ==

== ENCOUNTER 2024-07-23 06:00 | Outpatient (CLI) | payer MEDICARE, OTHER, SELFPAY | END 2024-07-23 06:01 | disposition home or self-care (01) | LOC: SLEEP 08-06 10:23 | PROVIDERS: PCP Nurse Practitioner; Visit Provider Nurse Practitioner | DX: E55.9 Vitamin D deficiency, unspecified (principal); I10 Essential (primary) hypertension; E03.8 Other specified hypothyroidism | CPT/HCPCS: 80053; 80061; 82306; 83735; 84443 ==

== ENCOUNTER → 2024-10-20 09:50 | Outpatient (BNVA) | payer MEDICARE, OTHER, SELFPAY | PROVIDERS: PCP Nurse Practitioner; Visit Provider Nurse Practitioner | DX: I10 Essential (primary) hypertension (principal); E03.8 Other specified hypothyroidism | CPT/HCPCS: 80053; 80061; 84443 ==

== ENCOUNTER → 2025-01-28 10:41 | Outpatient (BNVA) | payer MEDICARE, OTHER, SELFPAY | PROVIDERS: PCP Nurse Practitioner; Visit Provider Nurse Practitioner Family | DX: I10 Essential (primary) hypertension (principal); E78.5 Hyperlipidemia, unspecified; I49.3 Ventricular premature depolarization; R07.89 Other chest pain | CPT/HCPCS: 99214 ==

== ENCOUNTER → 2025-03-30 10:33 | Outpatient (BNVA) | payer MEDICARE, SELFPAY | PROVIDERS: PCP Nurse Practitioner; Visit Provider Nurse Practitioner | DX: E03.8 Other specified hypothyroidism (principal); E78.5 Hyperlipidemia, unspecified | CPT/HCPCS: 80053; 80061; 84443 ==

== ENCOUNTER → 2025-11-02 15:16 | Outpatient (BNVA) | payer MEDICARE, OTHER, SELFPAY | PROVIDERS: PCP Nurse Practitioner; Visit Provider Internal Medicine Cardiovascular Disease | DX: I49.3 Ventricular premature depolarization (principal); I35.1 Nonrheumatic aortic (valve) insufficiency; I10 Essential (primary) hypertension; E78.2 Mixed hyperlipidemia; I65.23 Occlusion and stenosis of bilateral carotid arteries; Z87.891 Personal history of nicotine dependence; R06.09 Other forms of dyspnea | CPT/HCPCS: 99214 ==

== ENCOUNTER 2025-11-10 08:03 | Outpatient (CLI) | payer MEDICARE, OTHER, SELFPAY ==
--- NOTE | 2025-11-10 08:30 | USCV_ITS ---
Ansley Nickerson Age: 80 Gender: F : 1945 Exam Date: 11/10/2025 08:25 Ordering Phys: Ellie Davis MD ([email or web address]) Technologist: Exam Location: [facility] [place] Indication: cp sob BP: 140 / 80 HR: 70 Rhythm: Sinus Technical Quality: MEASUREMENTS (Male / Female) Normal Values 2D ECHO LV Diastolic Diameter PLAX 3.1 cm 4.2 - 5.9 / 3.9 - 5.3 cm IVS Diastolic Thickness 1.1 cm 0.6 - 1.0 / 0.6 - 0.9 cm IVS Systolic Thickness 1.7 cm LVPW Diastolic Thickness 1.2 cm 0.6 - 1.0 / 0.6 - 0.9 cm LVPW Systolic Thickness 1.6 cm LVOT Diameter 2.0 cm LV Ejection Fraction 2D Teich 65.4 % LV Ejection Fraction MOD 4C 59.2 % LV Ejection Fraction MOD 2C 71.0 % LV Ejection Fraction 2C AL 71.4 % LA Diameter 3.8 cm RA Systolic Volume 4C AL 33.7 ml RA Systolic Volume 4C MOD 32.2 ml Aorta at Sinotubular Diameter 3.0 cm IVC Diameter 1.4 cm M-MODE LA Ao Ratio MM 1.3 AV Cusp Separation MM 1.4 cm DOPPLER AV Peak Velocity 139.7 cm/s LVOT Peak Velocity 115.0 cm/s AV Area Cont Eq vti 3.0 cm squared AV Area Cont Eq pk 2.7 cm squared MV Peak Velocity 188.0 cm/s MV Area PHT 2.4 cm squared Mitral E to A Ratio 0.8 TV Peak Velocity 251.0 cm/s TR Peak Velocity 325.0 cm/s TR Peak Gradient 42.3 mmHg TV Peak E Velocity 89.0 cm/s PV Peak Velocity 124.0 cm/s FINDINGS Left Ventricle Normal left ventricular size and systolic function, EF 59%.abnormal septal motion consistent with conduction abnormality. Grade I/IV diastolic dysfunction (abnormal relaxation filling pattern), normal to mildly elevated filling pressures. Right Ventricle Normal right ventricular size and systolic function. Right Atrium Normal right atrial size. Left Atrium Mildly increased left atrial size. IA Septum Normal appearance of the interatrial septum. Mitral Valve Thickened mitral valve. Mild mitral valve regurgitation. Aortic Valve Trace aortic valve regurgitation. Tricuspid Valve Trace tricuspid valve regurgitation. Estimated pulmonary artery peak systolic pressure 45 mmHg. This could be an overestimation because of the poor Doppler signals Pulmonic Valve Normal pulmonic valve structure. No pulmonic valve stenosis or regurgitation. Pericardium No pericardial effusion. Aorta Normal aortic annulus size. IVC Normal inferior vena cava. CONCLUSIONS Normal left ventricular size and systolic function, EF 59%.abnormal septal motion consistent with conduction abnormality. Grade I/IV diastolic dysfunction (abnormal relaxation filling pattern), normal to mildly elevated filling pressures. Mildly increased left atrial size. Thickened mitral valve. Mild mitral valve regurgitation. Trace aortic valve regurgitation. Trace tricuspid valve regurgitation. Estimated pulmonary artery peak systolic pressure 45 mmHg. This could be an overestimation because of the poor Doppler signals There is no pericardial effusion. There are no intracardiac masses. Comparison with the the study from 05/10/2023 is difficult because of the poor ultrasonic window Dr Ellie Davis MD [facility] (Electronically Signed) Final Date: 10 November 2025 13:56 S
== END 2025-11-10 08:04 | disposition home or self-care (01) ==
LOC: RAD 08:04
PROVIDERS: PCP Nurse Practitioner; Visit Provider Internal Medicine Cardiovascular Disease
DX: R06.09 Other forms of dyspnea (principal); R07.9 Chest pain, unspecified; R06.02 Shortness of breath; I51.89 Other ill-defined heart diseases; I51.7 Cardiomegaly; I34.0 Nonrheumatic mitral (valve) insufficiency; I34.9 Nonrheumatic mitral valve disorder, unspecified; I36.1 Nonrheumatic tricuspid (valve) insufficiency
CPT/HCPCS: 93306